=== PATIENT | male | born 1960 | race Caucasian/White ===

== ENCOUNTER 2016-08-15 01:52 | Observation (INO) | payer SELFPAY ==
--- NOTE | 2016-08-15 02:04 | EDPRACDOC ---
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 PT HAS A HX OF CAD INCLUDING A CABG AND STENT. HE DOES NOT KNOW WHAT HOSPITAL OR WHERE HE HAD HIS HEART SURGERY. PT SAID THAT HE WAS IN LONG TERM AND WAS MOVED AROUND. PT SAID THAT HE HAS NOT HAD ANY STRESS OR CATH IN OVER A YEAR, BUT HE IS UNSURE WHEN EXACTLY. PT IS ALSO OUT OF HIS PAIN MEDS. HE HAS A DR'S APPT THIS AM. Chest Pain Location: Reports: Substernal Pain Radiation: Reports: None Symptoms Occur: Reports: Suddenly Cardiac Risk Factors: Reports: Smoker, Hypertension Cardiac History of: Reports: DC, Cardiac Cath, CABG, Stent PE Risk Factors: Reports: None Prehospital Care: Reports: IV, Monitor Pain Came On: Reports: Suddenly Pain Status: Present Now Pain Description: Reports: Pressure Pain Severity: Moderate Pain Worsens With: Reports: Nothing Pain Improves With: Reports: Nothing Associated Signs and Symptoms: Reports: None ED Past Medical History - Patient Medical History Neurological History: Reports: Cerebrovascular Accident, Seizures Cardiac History: Reports: Coronary Artery Disease, Hypertension, Heart Attack, CABG (2007), Hypercholesterolemia Psychological History: Denies: Depression Systemic History: Reports: Cancer Surgical History: Reports: CABG (2007) - Social Medical History Smoking Status: Heavy tobacco smoker (5 or more cigarettes/day or daily pipe/ cigar) ETOH: None Substance Abuse: None Lives In: Home EDM Review of Systems - Review of Systems ROS Negative Except as Marked: Yes All systems reviewed and were negative except as marked Cardiovascular: Chest Pain - Physical Exam Constitutional: Alert (Awake), No apparent distress Oriented to: Time, Person, Place Last recorded Vital Signs: Oxygen Pulse Oxygen Saturation O2 Device Oxygen Flow Rate Fraction of Inspired Oxygen ( FIO2) - HEENT Head: Normal ( normocephalic) Eye Exam: Normal (PERRL, EOMI, Sclera white) Oropharynx: Normal (Pharynx:Moist without exudate,Gums-no swelling) ENT EAC: Normal TMJ: Normal Nose: No Symptoms Reported (septum midline) Neck: Normal (FROM, trachea at midline) - Respiratory/Cardiovascular Respiratory: Normal - CTA (BBS clear to auscultation without adventitious sounds ) Cardiovascular: Normal (RRR without murmur, gallop or rub) - GI Auscultation: Normal (NABS) Palpation: Normal (Soft,No rebound or guarding, non distended) Tenderness: Non tender Cruz's Sign: Negative - Musculoskeletal Back: Normal (Non-Tender) Extremities: Normal (Normal tone, Pulses 2+ No cyanosis or edema, FROM) - Integumentary Skin: Normal, Warm, Dry Lymphatics: Normal (no adenopathy) - Neurologic Memory Impaired: Normal Motor Function: Normal (Normal tone, Pulses 2+ No cyanosis or edema, FROM) Cranial Nerve: Normal (CN II-X11 intact sensation, strength 5/5) Cerebellar: Normal Mood Description: Normal Thought: Coherent Perception: Normal - Action ASA given in the ED: No Aspirin therapy held due to: Other-specify below* (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 Linear atelectasis in the right lung. - Departure Yes I personally saw and evaluated the patient. Disposition: Admit IP To This Hospital Condition: Fair Final Diagnosis: Acute coronary syndrome, Tobacco abuse, Chronic low back pain, NONTHERAPEUTIC TEGRETOL LEVEL Instructions: Core Strengthening Exercises (GEN), Back Pain Education/Counseling Given To: Patient Education/Counseling Given Regarding: Diagnosis, Treatment Referrals: None,No Provider [Primary Care Provider] - One Week Prescriptions: No Action Omeprazole [Prilosec] 20 mg PO BID Metoprolol Tartrate 50 mg PO BID Hydrocodone Bit/Acetaminophen [[place] 10-325 Tablet] 1 tab PO Q6H PRN PRN Reason: Pain Carbamazepine [Tegretol] 200 mg PO BID Decision to Admit Time: 02:55 Decision to admit date: 08/15/16 Decision to admit: from ED - Physician Consulted Hospitalist Provider Called: Jethro Pretty
[2016-08-15 02:14] LABS: AUTOMATED BASOPHIL 0.8 % (0-2); AUTOMATED LYMPH 12.7 % (17-44); AUTOMATED MONOCYTE 7.5 % (3-10); MPV 6.9 fL (7.4-10.4)
[2016-08-15] MEDS: NITROGLYCERINE 0.4 MG TAB SL SCH ×3 (02:18→02:28)
[2016-08-15 02:20] VITALS: BMI 30.4
[2016-08-15 02:23] LABS: BLOOD UREA NITROGEN 14 MG/DL (9-20); CALC CORRECTED 9.6 MG/DL (8.4-10.2); CALCIUM 8.4 MG/DL (8.4-10.2); CALCULATED OSMOLALITY 260 MOs/Kg (270-290); CHLORIDE 98 mEq/L (98-107); GLUCOSE 125 MG/DL (70-99); SODIUM LEVEL 134 mEq/L (137-146); TOTAL PROTEIN 6.5 G/DL (6.3-8.2)
[2016-08-15 02:31] LABS: PARTIAL THROMB. TIME 33.3 SEC (22-35); PT-INR 1.3
[2016-08-15] MEDS ORDERED: NITROGLYCERINE 2 % OINTMENT PACK TOP ONE (02:53)
[2016-08-15] MEDS ORDERED: ONDANSETRON HCL 4 MG/2 ML VIAL IV ONE (02:53)
[2016-08-15] MEDS ORDERED: MORPHINE 4 MG/ML INJECTION IV ONE (02:53)
--- NOTE | 2016-08-15 03:10 | DIRPT ---
CLINICAL DATA: Chest pain tonight. EXAM: PORTABLE CHEST 1 VIEW COMPARISON: 05/21/2013 FINDINGS: Patient is post median sternotomy. Cardiomegaly is stable allowing for lower lung volumes. Plate atelectasis in the right mid lower lung zone. No consolidation to suggest pneumonia. No pulmonary edema, large pleural effusion or pneumothorax. No acute osseous abnormalities are seen. IMPRESSION: Stable cardiomegaly. Linear atelectasis in the right lung. Electronically Signed By: Jennifer Zepeda M.D. On: 08/15/2016 03:07
--- NOTE | 2016-08-15 04:25 | HISTPHYS ---
- Chief Complaint chest pain - History of Present Illness PRIMARY CARE PROVIDER: Mr. Antoine CARIOLOGIST: Dr. Meadows HPI: The patient is a 55-year-old man with known coronary artery disease, history of CABG, history of stent placement approximately 1 and half years ago, who presents with acute chest pain. He had chest pain. He also fell and then his back hurt happened yesterday morning. Onset: 2 days ago. Duration: intermittent. Location: substernal. Radiation: "It shot up and down me." Character: Heaviness. 04/25. Alleviated by: Nothing. Exacerbated by: Nothing. Associated Symptoms: Chest pain. Shortness of breath. No palpitations. Diaphoresis. Nausea. Vomiting. Abdominal pain is chronic. Treatments: none at home except usual medications. - Medical History Cardiac History: Reports: Coronary Artery Disease, Hypertension, Heart Attack, Cardiac Catheterization (stent approx 2014), CABG (2007), Hypercholesterolemia Musculoskeletal History: Reports: Arthritis (and chronic back pain. Has right hip pain. Difficulty ambulating due to hip) Systemic History: Reports: Cancer (resected in left shoulder and left abdomen or ribs. In senior care.) Neurological History: Reports: Cerebrovascular Accident (approx 2005) Psychological History: Denies: Depression - Surgical History Reports: CABG (2007), Cardiac Catheterization (stent. approx 2014) resected in left shoulder and left abdomen or ribs, 2016. In senior care. - Medictions/Allergies Allergies No Known Allergies Allergy (Verified 08/15/16 02:09) Current Medication List: Reviewed Home Medications Hydrocodone Bit/Acetaminophen [[place] 10-325 Tablet] 1 tab PO Q6H PRN 06/13/16 Metoprolol Tartrate 50 mg PO BID 06/13/16 Omeprazole [Prilosec] 20 mg PO BID 06/13/16 Carbamazepine [Tegretol] 200 mg PO BID 08/15/16 - Family History Reports: Cancer (Father: prostate.), Cardiac Disorders (Mother: [place] 49yo.) - Social History Smoking Status: Heavy tobacco smoker (5 or more cigarettes/day or daily pipe/ cigar) (less than 1 ppd.) Social History: Denies: Alcohol Use, Substance Use Disorder - Review of Systems GENERAL: No Fever, chills, or diaphoresis. Positive for fatigue/malaise. HEENT: No nasal discharge or bleeding. No throat pain or swelling. No eye pain or eye redness. RESPIRATORY: Cough, wheezing, and shortness of breath. CARDIOVASCULAR: Chest pain. No palpitations. GI: Nausea, vomiting. Chronic abdominal pain. No diarrhea, constipation, or bloody stool. NEUROLOGICAL: No headache or focal weakness. INTEGUMENT: no rashes, itching, or lesions. LYMPHATIC SYSTEM: no lymph node swelling or pain. MUSCULOSKELETAL: Back pain. Otherwise no new pain or joint swelling. GENITOURINARY: No dysuria or hematuria. ENDOCRINE: No polyuria or polydipsia. HEME: No chronic anemia, bleeding, or easy bruising. - Physical Exam Vital Signs: Initial Vitals Temperature 98.1 F 08/15/16 01:59 Pulse Rate 84 08/15/16 01:59 Respiratory Rate 18 08/15/16 01:59 Blood Pressure 173/91 08/15/16 01:59 Pulse Oxygen Saturation 92 08/15/16 01:59 Vital Signs - 24 hr 08/15/16 08/15/16 08/15/16 01:59 02:10 02:18 Temperature 98.1 F Pulse Rate 84 65 78 Respiratory 18 18 Rate Blood Pressure 173/91 149/80 Pulse Oxygen 92 94 Saturation 08/15/16 08/15/16 08/15/16 02:23 02:28 02:33 Temperature Pulse Rate 84 73 86 Respiratory 18 18 18 Rate Blood Pressure 133/77 121/66 130/75 Pulse Oxygen 91 91 90 L Saturation 08/15/16 03:12 Temperature Pulse Rate 83 Respiratory 18 Rate Blood Pressure 157/87 Pulse Oxygen 92 Saturation Weight: 90.7 kg Height: 5 feet 8 inches BMI: 30.4 - Other Exam Other Exam Findings: GENERAL: Ill-appearing, well nourished, no acute distress. HEENT: Normocephalic, atraumatic; pupils equal and round. Nares patent, without discharge or bleeding. No oropharyngeal lesions or erythema. Mucous membranes are dry. NECK: is supple, no masses, trachea midline. RESPIRATORY: Clear to auscultation bilaterally. Chest wall movements are symmetric. No use of accessory muscles to breathe. No rales, rhonchi. Minimal wheezing. CARDIOVASCULAR: Normal S1, S2. No murmurs, rubs, or gallops. PMI non-displaced. Carotids: no carotid bruits. No bradycardia or tachycardia. Pulses 2+ bilaterally. GI: soft, nontender, non-distended, normal active bowel sounds. No hepatosplenomegaly. INTEGUMENT: Clean, dry, and intact. No rashes. No lesions. MUSCULOSKELETAL: No cyanosis. No clubbing. Edema: none bilaterally. No tenderness to palpation of back. NEUROLOGICAL: Cranial nerves 2-12 grossly intact. Motor 4/5 throughout upper extremities, 4/5 in left lower extremity. Refuses exam of right lower extremity. Reflexes: 2+ bilaterally. Intact Finger to nose. Sensory grossly intact to light touch. Intact rapid alternating movements bilaterally. No pronator drift. PSYCHIATRIC: Fully oriented. Odd affect. LYMPHATIC: No cervical lymphadenopathy. No supraclavicular lymphadenopathy. - Lab Results Laboratory Results - last 24 hr 08/15/16 08/15/16 08/15/16 02:04 02:04 02:04 WBC 15.1 H RBC 4.19 L Hgb 10.4 L Hct 32.3 L MCV 77 L MCH 24.8 L MCHC 32.2 L RDW 17.8 H Plt Count 538 H MPV 6.9 L Neut % (Auto) 75.0 Lymph % (Auto) 12.7 L [place] % (Auto) 7.5 Eos % (Auto) 4.0 Baso % (Auto) 0.8 Absolute Neuts (auto) 11.33 H Absolute Lymphs (auto) 1.81 PT 12.9 H INR 1.3 APTT 33.3 Sodium 134 L Potassium 3.1 L Chloride 98 Carbon Dioxide 22 Anion Gap 17 H BUN 14 Creatinine 0.70 Estimated GFR (MDRD) > 60 Glucose 125 H Calculated Osmolality 260 L Calcium 8.4 Corrected Calcium 9.6 Total Bilirubin 0.9 AST 34 ALT 46 Alkaline Phosphatase 325 H Troponin I < 0.01 Total Protein 6.5 Albumin 2.8 L Carbamazepine 3.0 L - Diagnostic Findings EK beats per minute. Sinus rhythm. ST and T-wave abnormality, consider anterior ischemia. Minimal ST depression in lead 2 V2, V3. Reviewed EKG personally. Chest x-ray, viewed personally: EXAM: PORTABLE CHEST 1 VIEW COMPARISON: 05/21/2013 FINDINGS: Patient is post median sternotomy. Cardiomegaly is stable allowing for lower lung volumes. Plate atelectasis in the right mid lower lung zone. No consolidation to suggest pneumonia. No pulmonary edema, large pleural effusion or pneumothorax. No acute osseous abnormalities are seen. IMPRESSION: Stable cardiomegaly. Linear atelectasis in the right lung. - Assessment (1) Chest pain R07.9 - CHEST PAIN, UNSPECIFIED Acute Present on Admission: Yes Qualifiers: Chest pain type: C Ischemic chest pain type: I Patient with known coronary artery disease, CABG, and stent placement approximately 1 and half years ago. Rule out myocardial infarction. Plan: Obtain cardiac enzymes x 3. Place patient on telemetry. Give patient oxygen, aspirin. Give nitroglycerin, and morphine as needed for chest pain. Give statin. Stress test has been ordered for the morning. Patient has been advised, if the stress test is negative, to follow up with the primary care provider for evaluation of other potential causes of the chest pain. (2) Hypokalemia E87.6 - HYPOKALEMIA Acute Present on Admission: Yes Replace potassium with KCl. Check magnesium level and replace as needed. (3) Leukocytosis D72.829 - ELEVATED WHITE BLOOD CELL COUNT, UNSPECIFIED Acute Present on Admission: Yes Qualifiers: Leukocytosis type: L Elevation of white blood cells of unknown etiology. Plan: Cultures have been ordered. No obvious source of infection. Consider treatment if source of infection found. (4) Nausea and vomiting R11.2 - NAUSEA WITH VOMITING, UNSPECIFIED Acute Present on Admission: Yes Qualifiers: Vomiting type: V Vomiting Intractability: V P.r.n. Zofran and Phenergan. (5) Chronic low back pain M54.5 - LOW BACK PAIN; G89.29 - OTHER CHRONIC PAIN Acute Present on Admission: Yes Qualifiers: Back pain laterality: B Sciatica presence: S Sciatica laterality: S Patient has chronic back pain. He was very interested in discussing his back pain. Explained to patient that he is being admitted for acute chest pain and that he should follow up with his primary care provider to address his back pain. (6) Tobacco abuse Z72.0 - TOBACCO USE Acute Present on Admission: Yes counseled to quit. Case Care Discussed with: Patient, Nursing Staff
[2016-08-15] MEDS ORDERED: NITROGLYCERINE 0.4 MG TAB SL PRN (05:05)
[2016-08-15] MEDS ORDERED: SENNA CONCENTRATE TAB PO PRN (05:16)
[2016-08-15] MEDS ORDERED: PROMETHAZINE 25 MG/ML VIAL IV PRN (05:16)
[2016-08-15] MEDS ORDERED: BISACODYL 5 MG TAB PO PRN (05:16)
[2016-08-15] MEDS ORDERED: Aluminum;Magnesium;Simethicone 30 ML UDC PO PRN (05:16)
[2016-08-15] MEDS ORDERED: BENZONATATE 100 MG PERLES PO PRN (05:16)
[2016-08-15] MEDS ORDERED: SIMETHICONE 80 MG TAB PO PRN (05:16)
[2016-08-15] MEDS ORDERED: ACETAMINOPHEN 325 MG SUPP PR PRN (05:16)
[2016-08-15] MEDS ORDERED: GUAIFEN 100 MG-DEXTROMETH 10 MG PER 5 ML PO PRN (05:16)
[2016-08-15] MEDS ORDERED: ONDANSETRON HCL 4 MG/2 ML VIAL IV PRN (05:16)
[2016-08-15] MEDS ORDERED: ACETAMINOPHEN 325 MG/TAB TABLET PO PRN (05:16)
[2016-08-15] MEDS ORDERED: Docusate Sodium 100 MG CAP PO PRN (05:16)
[2016-08-15] MEDS ORDERED: TEMAZEPAM 15 MG CAP PO PRN (05:16)
[2016-08-15 05:22] LABS: ALL NEG? NO
[2016-08-15 05:31] LABS: LEUKOCYTES/URINE NEG (NEGATIVE); NITRITE/URINE NEG (NEGATIVE); RBC/URINE 0-2 (0-2); URINE OCCULT BLOOD NEG (NEG/TRACE); WBC/URINE 0-2 (0-2)
[2016-08-15 05:40] LABS: MDMA* NEG (NEGATIVE); METHAMPHETAMINES NEG (NEGATIVE); OXYCODONE NEG (NEGATIVE)
[2016-08-15] MEDS ORDERED: NITROGLYCERINE 2 % OINTMENT PACK TOP SCH (06:00)
[2016-08-15] MEDS ORDERED: PANTOPRAZOLE 40 MG TAB PO SCH (06:00)
[2016-08-15] MEDS ORDERED: Pharmacy Order Set Alert SCH (06:00)
[2016-08-15] MEDS: MORPHINE 2 MG/ML INJECTION IV PRN ×3 (06:20→13:51)
[2016-08-15] MEDS: NITROGLYCERINE 2 % OINTMENT PACK TOP SCH ×2 (07:24→14:14)
[2016-08-15] MEDS: KCl 10 mEq/100 ml Premix (Run) 10 MEQ/100 ML RTU IV SCH ×3 (07:26→16:06)
[2016-08-15] MEDS ORDERED: ASPIRIN 325 MG TAB PO SCH (08:00)
[2016-08-15] MEDS ORDERED: NITROGLYCERINE 0.4 MG TAB SL ONE (08:02)
[2016-08-15] MEDS: HYDROCODONE 10 MG/ACETAMIN 325 MG TAB PO PRN ×2 (08:08→15:57)
[2016-08-15] MEDS: NITROGLYCERINE 0.4 MG TAB SL PRN ×2 (08:15→08:21)
[2016-08-15] MEDS ORDERED: Non-Formulary Medication ITEM (Omeprazole 20 MG) PO SCH (09:00)
[2016-08-15] MEDS ORDERED: CARBAMAZEPINE 200 MG TAB PO SCH (09:00)
[2016-08-15] MEDS ORDERED: Vaccine Screening Complete SCH (09:00)
[2016-08-15] MEDS ORDERED: ATORVASTATIN 40 MG TAB PO SCH (09:00)
[2016-08-15] MEDS ORDERED: METOPROLOL TARTRATE 50 MG TAB PO SCH (09:00)
[2016-08-15] MEDS ORDERED: LISINOPRIL 2.5 MG TAB PO SCH (09:00)
[2016-08-15] MEDS: POTASSIUM CHLORIDE 20 MEQ TAB PO SCH ×2 (09:03→14:14)
[2016-08-15] MEDS ORDERED: SESTAMIBI 8 MCI V IV ONE (10:55)
[2016-08-15] MEDS ORDERED: NS IV ONE (11:00)
[2016-08-15] MEDS ORDERED: [UNRECOGNIZED DRUG - OTHER] IV ONE (11:00)
[2016-08-15] MEDS ORDERED: REGADENOSON 0.4 MG/5 ML SYRINGE IV ONE (12:00)
[2016-08-15] MEDS ORDERED: SODIUM CHLORIDE 0.9% 10 ML FLUSH FLUSH ONE (12:00)
[2016-08-15 13:57] VITALS: BP 117/67; TEMP 97.7
[2016-08-15] MEDS ORDERED: ENOXAPARIN 40 MG/0.4 ML PFS SQ SCH (14:00)
--- NOTE | 2016-08-15 14:39 | PCM.DCS92 ---
- Final/Secondary Discharge Diagnosis (1) Chest pain Acute R07.9 - CHEST PAIN, UNSPECIFIED Present on Admission: Yes other chest pain I R07.89 - Other chest pain; R07.8 - Other chest pain Comment: Patient with known coronary artery disease, CABG, and stent placement approximately 1 and half years ago. Rule out myocardial infarction. Plan: Obtain cardiac enzymes x 3. Place patient on telemetry. Give patient oxygen, aspirin. Give nitroglycerin, and morphine as needed for chest pain. Give statin. Stress test has been ordered for the morning. Patient has been advised, if the stress test is negative, to follow up with the primary care provider for evaluation of other potential causes of the chest pain. (2) Hypokalemia Resolved E87.6 - HYPOKALEMIA Present on Admission: Yes Comment: Replace potassium with KCl. Check magnesium level and replace as needed. (3) Leukocytosis Acute D72.829 - ELEVATED WHITE BLOOD CELL COUNT, UNSPECIFIED Present on Admission: Yes L Comment: Elevation of white blood cells of unknown etiology. Plan: Cultures have been ordered. No obvious source of infection. Consider treatment if source of infection found. (4) Nausea and vomiting Resolved R11.2 - NAUSEA WITH VOMITING, UNSPECIFIED Present on Admission: Yes V V Comment: P.r.n. Zofran and Phenergan. (5) Chronic low back pain Acute M54.5 - LOW BACK PAIN; G89.29 - OTHER CHRONIC PAIN Present on Admission: Yes B S S Comment: Patient has chronic back pain. He was very interested in discussing his back pain. Explained to patient that he is being admitted for acute chest pain and that he should follow up with his primary care provider to address his back pain. (6) Tobacco abuse Acute Z72.0 - TOBACCO USE Present on Admission: Yes Comment: counseled to quit. Discharge Disposition: Home Discharge Condition: Fair Cognitive Discharge Status: Unimpaired Fuctional Discharge Status: Independent Physician Follow up/Referrals: Phong Antoine PA [Primary Care Provider] - One Week Home Medications / New Prescriptions: Continue Omeprazole [Prilosec] 40 mg PO DAILY Metoprolol Tartrate 50 mg PO BID Hydrocodone Bit/Acetaminophen [[place] 10-325 Tablet] 1 tab PO Q6H PRN PRN Reason: Pain Carbamazepine [Tegretol] 200 mg PO BID Aspirin [Aspirin EC] 81 mg PO DAILY Discharge Home Medication List Hydrocodone Bit/Acetaminophen [[place] 10-325 Tablet] 1 tab PO Q6H PRN 06/13/16 [ History Confirmed 08/15/16] Metoprolol Tartrate 50 mg PO BID 06/13/16 [History Confirmed 08/15/16] Omeprazole [Prilosec] 40 mg PO DAILY 06/13/16 [History Confirmed 08/15/16] Aspirin [Aspirin EC] 81 mg PO DAILY 08/15/16 [History Confirmed 08/15/16] Carbamazepine [Tegretol] 200 mg PO BID 08/15/16 [History Confirmed 08/15/16] O2 Device: Room Air Diet at Discharge: As Tolerated Activity: No Restrictions Call Office For: Worsening Symptoms, Fever over 100.5 Discontinue use of:: All Types of Tobacco - DC Summary Notes Hospital Course Note:: Discharge summary on patient named WIL KUMAR admitted to [facility] on 08/15/16 by Jethro Pretty MD. Date of discharge is []. The patient was admitted under observation and serial cardiac enzymes and EKGs were obtained. The patient ruled out for myocardial infarction by serial enzymes and EKGs. The patient then underwent a stress test. The stress test showed no evidence of reversible ischemia. The patient is stable for discharge home. Total Time: 45 minutes Code: 63964 (>30min.) - Physical Exam Vital Signs: Last Vital Signs Temp 97.7 F 08/15/16 13:56 Pulse 85 08/15/16 13:56 Resp 20 08/15/16 13:56 BP 117/67 08/15/16 13:56 Pulse Ox 94 08/15/16 13:56 Oxygen Pulse Oxygen Saturation 94 O2 Device Room Air Oxygen Flow Rate 2 Fraction of Inspired Oxygen ( FIO2) Constitutional: Alert (Awake), No apparent distress Oriented to: Time, Person, Place - HEENT Head: Normal ( normocephalic) Eye: Normal (PERRL, EOMI, Sclera white) Oropharynx: Normal (Pharynx:Moist without exudate,Gums-no swelling) ENT EAC: Normal TMJ: Normal Nose: No Symptoms Reported (septum midline) - Respiratory/Cardiovascular Respiratory: Normal - CTA (BBS clear to auscultation without adventitious sounds ) Cardiovascular: Normal (RRR without murmur, gallop or rub) - GI Auscultation: Normal (NABS) Palpation: Normal (Soft,No rebound or guarding, non distended) Tenderness: Non tender Cruz's Sign: Negative - Musculoskeletal Back: Normal (Non-Tender) Extremities: Normal (Normal tone, Pulses 2+ No cyanosis or edema, FROM) - Integumentary Skin: Normal, Warm, Dry Lymphatics: Normal (no adenopathy) - Neurologic Memory Impaired: Normal Cerebellar: Normal Mood Description: Normal Thought: Coherent Perception: Normal - Other Exam Other Exam Findings: Laboratory Results - last 24 hr 08/15/16 08/15/16 08/15/16 02:04 02:04 02:04 WBC 15.1 H RBC 4.19 L Hgb 10.4 L Hct 32.3 L MCV 77 L MCH 24.8 L MCHC 32.2 L RDW 17.8 H Plt Count 538 H MPV 6.9 L Neut % (Auto) 75.0 Lymph % (Auto) 12.7 L [place] % (Auto) 7.5 Eos % (Auto) 4.0 Baso % (Auto) 0.8 Absolute Neuts (auto) 11.33 H Absolute Lymphs (auto) 1.81 PT 12.9 H INR 1.3 APTT 33.3 Sodium 134 L Potassium 3.1 L Chloride 98 Carbon Dioxide 22 Anion Gap 17 H BUN 14 Creatinine 0.70 Estimated GFR (MDRD) > 60 Glucose 125 H Calculated Osmolality 260 L Calcium 8.4 Corrected Calcium 9.6 Magnesium Total Bilirubin 0.9 AST 34 ALT 46 Alkaline Phosphatase 325 H Troponin I < 0.01 Total Protein 6.5 Albumin 2.8 L Triglycerides Cholesterol LDL Cholesterol, Calc VLDL Cholesterol, Calc HDL Cholesterol Cholesterol/HDL Ratio Urine Color Urine Clarity Urine pH Ur Specific [employer] Urine Protein Urine Glucose (UA) Urine Ketones Urine Occult Blood Urine Nitrite Urine Bilirubin Urine Urobilinogen Ur Leukocyte Esterase Urine RBC Urine WBC Urine Bacteria Urine Mucus Urine Opiates Screen Ur Oxycodone Screen Urine Methadone Screen Ur Barbiturates Screen Carbamazepine 3.0 L Ur Tricyclics Screen Ur Phencyclidine Scrn Ur Amphetamines Screen U Methamphetamines Scrn Urine MDMA Screen U Benzodiazepines Scrn Urine Cocaine Screen Ur THC Screen 08/15/16 08/15/16 08/15/16 02:04 05:12 05:12 WBC RBC Hgb Hct MCV MCH MCHC RDW Plt Count MPV Neut % (Auto) Lymph % (Auto) [place] % (Auto) Eos % (Auto) Baso % (Auto) Absolute Neuts (auto) Absolute Lymphs (auto) PT INR APTT Sodium Potassium Chloride Carbon Dioxide Anion Gap BUN Creatinine Estimated GFR (MDRD) Glucose Calculated Osmolality Calcium Corrected Calcium Magnesium Total Bilirubin AST ALT Alkaline Phosphatase Troponin I Total Protein Albumin Triglycerides 180 H Cholesterol 101 LDL Cholesterol, Calc 44.0 VLDL Cholesterol, Calc 36.0 HDL Cholesterol 21.0 L Cholesterol/HDL Ratio 4.8 Urine Color [place] Urine Clarity Clear Urine pH 6.0 Ur Specific [employer] 1.025 Urine Protein 1+ H Urine Glucose (UA) Trace Urine Ketones Neg Urine Occult Blood Neg Urine Nitrite Neg Urine Bilirubin Neg Urine Urobilinogen 2 H Ur Leukocyte Esterase Neg Urine RBC 0-2 Urine WBC 0-2 Urine Bacteria Few Urine Mucus Occ Urine Opiates Screen *positive* H Ur Oxycodone Screen Neg Urine Methadone Screen Neg Ur Barbiturates Screen Neg Carbamazepine Ur Tricyclics Screen Neg Ur Phencyclidine Scrn Neg Ur Amphetamines Screen Neg U Methamphetamines Scrn Neg Urine MDMA Screen Neg U Benzodiazepines Scrn *positive* H Urine Cocaine Screen Neg Ur THC Screen Neg 08/15/16 08/15/16 08/15/16 05:30 05:30 08:41 WBC RBC Hgb Hct MCV MCH MCHC RDW Plt Count MPV Neut % (Auto) Lymph % (Auto) [place] % (Auto) Eos % (Auto) Baso % (Auto) Absolute Neuts (auto) Absolute Lymphs (auto) PT INR APTT Sodium Potassium Chloride Carbon Dioxide Anion Gap BUN Creatinine Estimated GFR (MDRD) Glucose Calculated Osmolality Calcium Corrected Calcium Magnesium 1.70 Total Bilirubin AST ALT Alkaline Phosphatase Troponin I < 0.01 < 0.01 Total Protein Albumin Triglycerides Cholesterol LDL Cholesterol, Calc VLDL Cholesterol, Calc HDL Cholesterol Cholesterol/HDL Ratio Urine Color Urine Clarity Urine pH Ur Specific [employer] Urine Protein Urine Glucose (UA) Urine Ketones Urine Occult Blood Urine Nitrite Urine Bilirubin Urine Urobilinogen Ur Leukocyte Esterase Urine RBC Urine WBC Urine Bacteria Urine Mucus Urine Opiates Screen Ur Oxycodone Screen Urine Methadone Screen Ur Barbiturates Screen Carbamazepine Ur Tricyclics Screen Ur Phencyclidine Scrn Ur Amphetamines Screen U Methamphetamines Scrn Urine MDMA Screen U Benzodiazepines Scrn Urine Cocaine Screen Ur THC Screen
--- NOTE | 2016-08-15 14:43 | PCM.STRESS ---
REGADENOSON MYOCARDIAL PERFUSION STRESS TEST DATE OF PROCEDURE: 08/15/16 INDICATION: Chest pain-known ASHD-IA ruled out RESTING DATA: HR 89 B/P 150/98 Chest clear Cor: Regular rhythm, no murmur or rub RESTING EKG: Normal sinus minimal ST sagging lateral leads PROTOCOL: Approx 8 mCi of technetium-99m pyrophosphate (Cardiolyte) was injected intravenously and tomograhic imaging performed at rest. An hour later, 0.4 mg of regadenoson was injected as an IV bolus, followed by an additional 25 mCi of Cardiolyte and tomographic imaging repeated. Heart rate stayed stable at 94 per minute . BP remained stable in range of 150/98 Patient tolerated well. Patient complained of chest pain before and throughout testing. No objective distress. STRESS EKG: Rhythm: Sinus. ST-T changes: None [No arrhythmias or pauses] MYOCARDIAL PERFUSION IMAGING: Rotational display of raw projection data documents [stable pt position during imaging]. [There is a high right hemidiaphragm and prominent hepatic uptake]. [Clear potential for] [diaphragm] [attenuation artifact is suggested]. There is a vague area of minimally decreased count density in the posterior wall on both rest and stress images probably representing mild diaphragm attenuation artifact. No no significant perfusion defects are seen on rest or vasodilators stress] [mild decreased count density through inferior wall on both rest and stress images] [No areas of stress-induced hypoperfusion are identified] IMPRESSION: (1) Functional capacity is not assessed (2) Normal resting left ventricular size and function, with end-systolic volume of 48 ml and ejection fraction of 55 %. (3) [No areas of vasodilator induced hypoperfusion are identified] Negative pharmacologic perfusion stress test for potential ischemia.
--- NOTE | 2016-08-15 14:50 | CAPUEKG ---
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 Electronically Signed On 08-15-16 14:49:11 EST by Cory Herrera <[email or web address]> [id number]
[2016-08-15 16:07] VITALS: PULSE 86
== END 2016-08-15 17:14 | disposition home or self-care (01) ==
LOC: ED 01:52 → MERGE 05:05 → PCU 05:05
PROVIDERS: ADMIT Internal Medicine; ATTEND Hospitalist
DX: R07.89 Other chest pain (principal); I25.10 Atherosclerotic heart disease of native coronary artery without angina pectoris; E87.6 Hypokalemia; D72.829 Elevated white blood cell count, unspecified; R11.2 Nausea with vomiting, unspecified; M54.5 Low back pain; M25.551 Pain in right hip; G89.29 Other chronic pain; I10 Essential (primary) hypertension; E78.00 Pure hypercholesterolemia, unspecified; F17.200 Nicotine dependence, unspecified, uncomplicated; I25.2 Old myocardial infarction; Z95.1 Presence of aortocoronary bypass graft; Z86.73 Personal history of transient ischemic attack (TIA), and cerebral infarction without residual deficits; Z79.899 Other long term (current) drug therapy
CPT/HCPCS: 36415; 71010; 78452; 80053; 80061; 80156; 80307; 81001; 83735; 84484; 85025; 85610; 85730; 87040; 87086; 93005; 93017; 96374; 96375; 99285; 99406; A4216; A9500; G0378; J1650; J1741; J2270; J2405; J2550; J2785; J3480; J3490; J7050